=== PATIENT | female | born 2000 | race Hispanic/Latino ===

== ENCOUNTER 2024-02-03 12:31 | Emergency (ER) | payer MEDICARE ==
[~2024-02-03] VITALS: Ht 160 cm; Wt 40.1 kg
[2024-02-03 12:36] VITALS: TEMP 98.8
[2024-02-03] MEDS: SODIUM CHLORIDE 0.9% 1000ML 1,000 ML IV ONE (13:03)
[2024-02-03] MEDS: ONDANSETRON HCL INJ 2MG/ML 2ML 2 MG/ML VIAL IV STA (13:03)
[2024-02-03] MEDS: FAMOTIDINE 20 MG/2 ML VIAL IV STA (13:03)
[2024-02-03 13:34] LABS: BASOPHILS % 0.1 % (0.0-1.0); EOSINOPHILS % 0.3 % (0.0-6.0); HEMATOCRIT 44.1 % (34.2-44.1); HEMOGLOBIN 14.7 g/dL (12.0-16.0); LYMPHOCYTES # (AUTO) 2.1 (1.0-3.2); LYMPHOCYTES % 27.9 % (18.0-39.1); MEAN CORPUSCULAR HEMOGLOBIN 31.4 pg (28-32); MEAN CORPUSCULAR HGB CONC 33.3 g/dL (31-35); MEAN CORPUSCULAR VOLUME 94.2 fL (81-99); MONOCYTES # (AUTO) 0.6 (0.2-0.8); MONOCYTES % 8.6 % (4.4-11.3); NEUTROPHILS # (AUTO) 4.7 (2.1-6.9); PLATELET COUNT 231 x10e3/uL (140-360); RED BLOOD COUNT 4.68 x10e6/uL (3.6-5.1); RED CELL DISTRIBUTION WIDTH 12.5 % (11.7-14.4); WHITE BLOOD COUNT 7.43 x10e3/uL (4.8-10.8)
[2024-02-03 13:58] LABS: ALANINE AMINOTRANSFERASE 10 IU/L (0-55); ALBUMIN 4.8 g/dL (3.5-5.0); ALBUMIN/GLOBULIN RATIO 1.4 (0.8-2.0); ALKALINE PHOSPHATASE 91 IU/L (40-150); ANION GAP 18.3 mmol/L (8-16); BILIRUBIN,TOTAL 1.1 mg/dL (0.2-1.2); BLOOD UREA NITROGEN 11 mg/dL (7-26); BUN/CREATININE RATIO 15 (6-25); CALCIUM 9.9 mg/dL (8.4-10.2); CARBON DIOXIDE 19 mmol/L (22-29); CHLORIDE 103 mmol/L (98-107); CREATININE, SERUM 0.74 mg/dL (0.57-1.11); EST GLOMERULAR FILTRATION RATE 115 ML/MIN (>=60); GLUCOSE 83 mg/dL (74-118); LIPASE 22 U/L (8-78); SODIUM 137 mmol/L (136-145); TOTAL PROTEIN 8.2 g/dL (6.5-8.1)
[2024-02-03 13:59] LABS: POTASSIUM 3.3 mmol/L (3.5-5.1)
[2024-02-03 15:00] VITALS: RESP 16
[2024-02-03 15:11] LABS: CLARITY,URINE SL CLOUDY (CLEAR); COLOR,URINE YELLOW (YELLOW); GLUCOSE, URINE NEGATIVE (NEGATIVE); LEUKOCYTE ESTERASE ,URINE NEGATIVE (NEGATIVE); NITRITE,URINE NEGATIVE (NEGATIVE); PH,URINE 6.5 (5 - 7); PROTEIN,URINE DIPSTICK NEGATIVE (NEGATIVE)
[2024-02-03 15:12] LABS: BILIRUBIN,URINE NEGATIVE (NEGATIVE); KETONES,URINE >=160 (NEGATIVE); URINE UROBILINOGEN 0.2 mg/dL (0.2 - 1)
[2024-02-03 15:23] LABS: AMORPHOUS SEDIMENT,URINE MODERATE (FEW); BACTERIA,URINE FEW /HPF; EPITHELIAL CELLS,URINE MANY /LPF; MUCUS,URINE FEW (RARE); RBC,URINE 0-5 /HPF (0-5)
[2024-02-03] MEDS: DONNATAL/LIDOCAINE/MAALOX 30 ML SUSP PO ONE (16:27)
[2024-02-03] MEDS: SUCRALFATE 1 GM TAB PO STA (16:28)
[2024-02-03 16:30] VITALS: PULSE 56; O2SAT 100
== END 2024-02-03 16:58 | disposition left against medical advice (07) ==
LOC: ER 12:32
DX: R11.2 Nausea with vomiting, unspecified (principal); K29.70 Gastritis, unspecified, without bleeding; R10.13 Epigastric pain; R51.9 Headache, unspecified; F17.210 Nicotine dependence, cigarettes, uncomplicated
CPT/HCPCS: 36415; 80053; 81001; 83690; 84702; 85025; 99284; J2405; J7030